=== PATIENT | female | born 1985 | race Two or more races ===

== ENCOUNTER 2018-03-27 11:12 | Outpatient (CLI) | payer OTHER | END 2018-03-27 11:21 | disposition home or self-care (01) | LOC: SONOGRAMA 11:12 | DX: N94.5 Secondary dysmenorrhea (principal); N84.0 Polyp of corpus uteri ==

== ENCOUNTER 2018-07-26 06:44 | Day surgery (SDC) | payer OTHER ==
[2018-07-26] MEDS ORDERED: CODE1TAB37 PO (10:54)
[2018-07-26] MEDS ORDERED: DOXYCYCLINE HY100 MG PO (10:54)
== END 2018-07-26 16:50 | disposition home or self-care (01) ==
LOC: CIR.AMB 06:44
DX: N84.0 Polyp of corpus uteri (principal); D25.0 Submucous leiomyoma of uterus